=== PATIENT | female | born 1995 | race Caucasian/White ===

== ENCOUNTER 2017-09-30 17:29 | Emergency (ER) | payer BC ==
[~2017-09-30] VITALS: Ht 167.6 cm; Wt 72.6 kg
[2017-09-30] MEDS ORDERED: ZOFRAN4 MG SL (20:23)
[2017-09-30] MEDS ORDERED: TYLENOL WITH C1 EACH PO (20:23)
[2017-09-30] MEDS ORDERED: DOXYCYCLINE HY100 MG PO (20:23)
[2017-09-30] MEDS ORDERED: BACITRACIN ZINC 0.9GM TP ONE (20:30)
[2017-09-30 20:42] VITALS: BP 113/68
== END 2017-09-30 20:59 | disposition home or self-care (01) ==
LOC: ER 17:29
DX: L03.115 Cellulitis of right lower limb (principal); T24.231D Burn of second degree of right lower leg, subsequent encounter
CPT/HCPCS: 99283

== ENCOUNTER 2024-06-18 08:47 | Emergency (ER) | payer OTHER ==
[~2024-06-18] VITALS: Ht 165.1 cm; Wt 95.3 kg
[~2024-06-18 08:47] MED LIST: DOXYCYCLINE HY100 MG PO; TYLENOL WITH C1 EACH PO; ZOFRAN4 MG SL
[2024-06-18 09:00] VITALS: TEMP 98
[2024-06-18] MEDS ORDERED: ONDANSETRON HCL INJ 2MG/ML 2ML 2 MG/ML VIAL IV PRN (09:00)
[2024-06-18 09:33] LABS: BASOPHILS # (AUTO) 0.1 (0.0-0.1); BASOPHILS % 0.5 % (0.0-1.0); EOSINOPHILS % 0.4 % (0.0-6.0); HEMATOCRIT 43.4 % (34.2-44.1); HEMOGLOBIN 14.8 g/dL (12.0-16.0); LYMPHOCYTES # (AUTO) 2.8 (1.0-3.2); LYMPHOCYTES % 27.6 % (18.0-39.1); MEAN CORPUSCULAR HEMOGLOBIN 30.1 pg (28-32); MEAN CORPUSCULAR HGB CONC 34.1 g/dL (31-35); MEAN CORPUSCULAR VOLUME 88.4 fL (81-99); MONOCYTES # (AUTO) 0.8 (0.2-0.8); MONOCYTES % 7.6 % (4.4-11.3); NEUTROPHILS # (AUTO) 6.5 (2.1-6.9); NEUTROPHILS % 63.4 % (38.7-80.0); PLATELET COUNT 248 x10e3/uL (140-360); RED BLOOD COUNT 4.91 x10e6/uL (3.6-5.1); RED CELL DISTRIBUTION WIDTH 12.2 % (11.7-14.4); WHITE BLOOD COUNT 10.24 x10e3/uL (4.8-10.8)
[2024-06-18 09:43] LABS: CLARITY,URINE TURBID (CLEAR); COLOR,URINE YELLOW (YELLOW); GLUCOSE, URINE NEGATIVE (NEGATIVE); KETONES,URINE NEGATIVE (NEGATIVE); LEUKOCYTE ESTERASE ,URINE NEGATIVE (NEGATIVE); NITRITE,URINE NEGATIVE (NEGATIVE); PH,URINE 7 (5 - 7); PROTEIN,URINE DIPSTICK 1+ (NEGATIVE); URINE UROBILINOGEN 0.2 mg/dL (0.2 - 1)
[2024-06-18 09:44] LABS: BILIRUBIN,URINE NEGATIVE (NEGATIVE)
[2024-06-18 09:46] LABS: BACTERIA,URINE MANY /HPF; EPITHELIAL CELLS,URINE MANY /LPF; RBC,URINE 0-5 /HPF (0-5)
[2024-06-18 09:55] LABS: ANION GAP 17.1 mmol/L (8-16); BILIRUBIN,TOTAL 0.6 mg/dL (0.2-1.2); CALCIUM 9.4 mg/dL (8.4-10.2); CREATININE, SERUM 0.88 mg/dL (0.57-1.11); POTASSIUM 4.1 mmol/L (3.5-5.1); TOTAL PROTEIN 7.7 g/dL (6.5-8.1)
[2024-06-18] MEDS: DICYCLOMINE HCL 20 MG/2 ML VIAL IM ONE (10:03)
[2024-06-18 10:15] LABS: ALBUMIN 4.1 g/dL (3.5-5.0)
[2024-06-18 10:19] LABS: ALBUMIN/GLOBULIN RATIO 1.1 (0.8-2.0)
[2024-06-18] MEDS: HALOPERIDOL LACTATE 5 MG/ML VIAL IV ONE (10:21)
[2024-06-18] MEDS: SODIUM CHLORIDE 0.9% 1000ML 1,000 ML IV STA (10:30)
[2024-06-18 11:00] VITALS: PULSE 70; RESP 15
[2024-06-18] MEDS ORDERED: PROMETHAZINE HC25 M1 PO (11:09)
[2024-06-18] MEDS ORDERED: CEFDINIR300 MG PO (11:09)
[2024-06-18] MEDS ORDERED: DICYCLOMINE HCL20 MG PO (11:10)
[2024-06-18 11:20] VITALS: BP 128/68; PULSE 72; RESP 16; TEMP 97.6; O2SAT 98
== END 2024-06-18 11:20 | disposition home or self-care (01) ==
LOC: ER 08:54 → MERGE 08:54 → ER 11:20
DX: R11.2 Nausea with vomiting, unspecified (principal); R19.7 Diarrhea, unspecified; R10.84 Generalized abdominal pain
CPT/HCPCS: 36415; 80053; 81001; 83690; 85025; 99284; J0500; J1630; J7030